=== PATIENT | male | born 1960 | race Two or more races ===

== ENCOUNTER 2017-07-21 11:22 | Emergency (ER) | payer MEDICAID, OTHER ==
[~2017-07-21] VITALS: Ht 170.2 cm; Wt 74.8 kg
[2017-07-21 11:27] VITALS: BP 122/77
== END 2017-07-21 15:29 | disposition left against medical advice (07) ==
LOC: ER 11:22
DX: T22.112A Burn of first degree of left forearm, initial encounter (principal); Z53.21 Procedure and treatment not carried out due to patient leaving prior to being seen by health care provider; X08.8XXA Exposure to other specified smoke, fire and flames, initial encounter; Y93.89 Activity, other specified; Y92.89 Other specified places as the place of occurrence of the external cause; Y99.8 Other external cause status

== ENCOUNTER → 2021-11-13 | Outpatient (CLI) | payer MEDICAID | END | disposition home or self-care (01) | LOC: Rad HDHVI 15:19 | PROVIDERS: ATTEND Internal Medicine Cardiovascular Disease | DX: I77.819 Aortic ectasia, unspecified site (principal); I10 Essential (primary) hypertension | CPT/HCPCS: 93306 ==

== ENCOUNTER → 2022-03-11 | Outpatient (CLI) | payer MEDICAID ==
[~2022-03-11] VITALS: Ht 170.2 cm; Wt 90.7 kg
[~2022-03-11] MED LIST: ADENOSINE 76 MG in GIVE UN-DILUTED 0 ML IV ONE; ADENOSINE 90 MG/30 ML INJ IV ONE
== END | disposition home or self-care (01) ==
LOC: Rad HDHVI 12:42
PROVIDERS: ATTEND Internal Medicine Cardiovascular Disease
DX: I10 Essential (primary) hypertension (principal); I25.10 Atherosclerotic heart disease of native coronary artery without angina pectoris; R06.02 Shortness of breath; R07.89 Other chest pain; I34.0 Nonrheumatic mitral (valve) insufficiency; E78.00 Pure hypercholesterolemia, unspecified; Z82.49 Family history of ischemic heart disease and other diseases of the circulatory system
CPT/HCPCS: 78452; 93005; 96374; 96375; A9500; J0153

== ENCOUNTER → 2022-08-04 | Outpatient (CLI) | payer MEDICAID ==
[~2022-08-04] VITALS: Ht 170.2 cm; Wt 94.8 kg
[~2022-08-04] MED LIST changes: -ADENOSINE 76 MG in GIVE UN-DILUTED 0 ML IV ONE; +ADENOSINE 80 MG in GIVE UN-DILUTED 0 ML IV ONE
== END | disposition home or self-care (01) ==
LOC: Rad HDHVI 08:03
PROVIDERS: ATTEND Internal Medicine Cardiovascular Disease
DX: I25.10 Atherosclerotic heart disease of native coronary artery without angina pectoris (principal); R07.9 Chest pain, unspecified; I48.0 Paroxysmal atrial fibrillation; I10 Essential (primary) hypertension; E78.00 Pure hypercholesterolemia, unspecified; Z82.49 Family history of ischemic heart disease and other diseases of the circulatory system
CPT/HCPCS: 78452; 93005; 96374; 96375; A9500; J0153

== ENCOUNTER → 2024-03-23 | Outpatient (CLI) | payer BC | END | disposition home or self-care (01) | LOC: Rad HDHVI 08:10 | PROVIDERS: ATTEND Internal Medicine Cardiovascular Disease | DX: I10 Essential (primary) hypertension (principal); E11.65 Type 2 diabetes mellitus with hyperglycemia | CPT/HCPCS: 93306 ==

== ENCOUNTER → 2024-05-09 | Outpatient (CLI) | payer BC, MEDICAID ==
[~2024-05-09] MED LIST changes: -ADENOSINE 80 MG in GIVE UN-DILUTED 0 ML IV ONE; -ADENOSINE 90 MG/30 ML INJ IV ONE; +ASPI1TAB20 PO; +ATOR40TA52 PO; +CLOP75TA28 PO; +ESOM40CA39 PO; +LEVO100T8 PO; +SACU1TAB PO
[2024-05-09 14:01] VITALS: BP 165/83; PULSE 68; RESP 20; O2SAT 94
[2024-05-09 14:10] VITALS: BP 167/83; PULSE 64; RESP 20; O2SAT 94
== END | disposition home or self-care (01) ==
LOC: Rad HDHVI 13:43
PROVIDERS: ATTEND Internal Medicine Cardiovascular Disease
DX: Z01.818 Encounter for other preprocedural examination (principal); R06.02 Shortness of breath; R09.89 Other specified symptoms and signs involving the circulatory and respiratory systems
CPT/HCPCS: 71046; 93005; G0463

== ENCOUNTER 2024-05-11 07:30 | Day surgery (SDC) | payer BC, MEDICAID ==
[2024-05-09 16:13] LABS: Basophils # (auto) 0.1 10 ^3/uL (0-0.2); Basophils % (auto) 0.5 % (0.0-2.0); Eosinophils # (auto) 0.8 10 ^3/uL (0-0.8); Eosinophils % (auto) 8.6 % (0.0-7.0); Hemoglobin 17.8 g/dL (13.5-17.5); Lymphocytes # (auto) 3.3 10 ^3/uL (0.4-5.4); Mean Corpuscular Hemoglobin 31.7 pg (28.0-32.0); Mean Corpuscular Hgb Conc. 34.8 g/dL (32.0-36.0); Monocytes # (auto) 0.9 10 ^3/uL (0-1.3); Monocytes % (auto) 8.8 % (0.0-12.0); Neutrophils # (auto) 4.7 10 ^3/uL (1.6-8.6); Neutrophils % (auto) 48.1 % (37.0-80.0); Nucleated Red Blood Cells % 0.8 %; Platelet Count (auto) 146 10^3/uL (140-450); Red Blood Cells 5.61 10^6/uL (4.5-5.90); Red Cell Distribution Width 13.9 % (11.8-14.3); White Blood Cell 9.7 10^3/uL (4.4-10.8)
[2024-05-09 16:21] LABS: Anion Gap 8 (5-15); Carbon Dioxide 25 mmol/L (20-31); Chloride 106 mmol/L (98-107); Potassium 3.8 mmol/L (3.5-5.1); Sodium 139 mmol/L (136-145)
[2024-05-09 16:22] LABS: Calcium 10.2 mg/dL (8.7-10.4)
[2024-05-09 16:27] LABS: BUN/Creatinine Ratio 12.5 (10.0-20.0); Blood Urea Nitrogen 13 mg/dL (9-23); Glucose 99 mg/dL (74-106)
[2024-05-09 16:30] LABS: INR 1.04 (0.9-1.15); Partial Thromboplastin Time 25.5 SEC (24.5-34.5)
[2024-05-11] VITALS (8 sets, daily range): BP systolic 120–143; BP diastolic 64–86; PULSE 58–64; RESP 12–24; O2SAT 91–96
[~2024-05-11] VITALS: Ht 170.2 cm; Wt 102.1 kg
[2024-05-11] MEDS ORDERED: fentaNYL CITRATE 100 MCG/2 ML VL ONE (12:18)
[2024-05-11] MEDS ORDERED: ANGIOMAX 250 MG VIAL IV ONE ×2 (12:18→13:51)
[2024-05-11] MEDS ORDERED: VERAPAMIL 2.5MG/ML INJ 2ML VIAL IV ONE (12:18)
[2024-05-11] MEDS ORDERED: HEPARIN SODIUM (PORCINE) 5000 UNITS/ML 1ML VIAL ONE (12:18)
[2024-05-11] MEDS ORDERED: LIDOCAINE 2%HCL (LOCAL ANESTH.) INJ 20ML MDV ONE (12:19)
[2024-05-11] MEDS ORDERED: MIDAZOLAM HCL 2MG/2ML 2ml VIAL (1mg/ml) ONE (12:19)
[2024-05-11] MEDS ORDERED: SODIUM CHL 0.9% 50 ML ONE ×2 (12:19→13:51)
[2024-05-11] MEDS ORDERED: ATROPINE SULF 1 MG/10ml SYR ONE (13:19)
[2024-05-11] MEDS ORDERED: CLOPIDOGREL BISULFATE 75 MG TAB ONE (13:45)
[2024-05-11] MEDS: ASPirin 81 mg TAB PO SCH (14:58)
[2024-05-11] MEDS: CLOPIDOGREL BISULFATE 75 MG TAB PO SCH (14:58)
--- NOTE | 2024-06-02 16:35 | DVHOP ---
DATE OF SURGERY: 05/11/2024 PROCEDURES PERFORMED: * Selective left and right coronary angiography. * Ventriculogram. * Thrombectomy of the posterior descending artery of the right coronary artery as well as angioplasty with stent placement with a 2.5 x 26 mm [place] stent. DESCRIPTION OF PROCEDURE: The patient was prepped and draped in a sterile condition. 1% Xylocaine used to anesthetize the right groin. Using a Cook needle, the right femoral artery was engaged with Seldinger technique, a 6-Serbian sheath in the right femoral artery. Using 6-Serbian JL4 catheter and 6-Serbian JR4 catheter, selective left and right coronary angiographies were performed. Using 6-Serbian pigtail catheter, ventriculogram was done. Then, following the diagnostic angiography, using a 6-Serbian JR4 diagnostic catheter, right coronary artery was cannulated. A Runthrough wire was used to cross the PDA lesion. It was in the mid to proximal lesion. Thrombectomy was done and shockwave was done, using a 2.5 x 12 mm shockwave balloon and thrombectomy catheter. Following the treatment, the patient underwent angioplasty with stent placement with a 2.5 x 26 mm ____ Damien stent deployed at 18 atmospheres. There were no complications. The patient tolerated the procedure well. RESULTS: * Left main without any flow restrictive lesion. * Left anterior descending artery, mild intimal irregularity without any flow restrictive lesion. * Circumflex, mild irregularity without any flow restrictive lesion. * Right coronary artery had mild intimal irregularity without any flow restrictive lesion. * Posterior lateral branch without any flow restrictive lesion. However, posterior descending artery had 80-90% narrowing with an FFR of 0.82. The patient underwent thrombectomy, shockwave treatment and stent placement with a 2.5 x 26 mm [place] stent with less than 10% residual stenosis. Left ventricular ejection fraction was around 50% with an LVEDP of 16 mmHg with no gradient across the aortic valve. Corby Owens MD SA/GEORGE/[facility] TID: [id number] RECEIPT: [id number]
== END 2024-05-11 16:15 | disposition home or self-care (01) ==
LOC: CATH 07:30
PROVIDERS: ATTEND Internal Medicine Cardiovascular Disease
DX: R94.39 Abnormal result of other cardiovascular function study (principal); R94.31 Abnormal electrocardiogram [ECG] [EKG]; R07.89 Other chest pain; I25.10 Atherosclerotic heart disease of native coronary artery without angina pectoris
CPT/HCPCS: 36415; 75580; 80048; 85025; 85610; 85730; 92973; 92978; 93458; C1725; C1753; C1760; C1769; C1874; C1887; C1894; C9600; J0583; J2250; J3010; J7030; 99152

== ENCOUNTER 2024-11-10 08:59 | Inpatient (IN) | payer BC, MEDICAID ==
[~2024-11-10] VITALS: Ht 170.2 cm; Wt 90.1 kg
--- NOTE | 2024-11-10 09:07 | ECG ---
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
--- NOTE | 2024-11-10 09:19 | ED.PDOC ---
History of Present Illness HPI Comments 64M presents to the Er w/ prior MHx of HTN, High Lipids, Thyroid; SHx of PTCA x5 due from blockage w/ Dr. Tavarez 4 months ago, and c/c of CP. Pt reports on having left shoulder and arm numbness for the past 2 days, and this morning having a sharp left sided CP, but took a low does of aspirin during the CP. Denies chills, fever, N/V/D, SOB. No other associated symptoms, modifiers, recent injuries or sick contacts present at this time. Chief Complaint: Chest Pain Time Seen by MD: 09:10 Primary Care Provider: ARACELI Reviewed Notes: Nurses Notes, Medications, Allergies Allergies: Coded Allergies: NO KNOWN ALLERGIES (Unverified , 05/09/24) Home Meds Reported Medications Sacubitril-Valsartan (Entresto 24-26 mg) 1 Tab Tab, 1 TAB PO BID for htn, TAB 05/09/24 Esomeprazole Magnesium Trihydr (Nexium) 40 Mg Cap, 1 CAP PO DAILY for gerd, #30 CAP 5 Refills 05/09/24 Clopidogrel Bisulfate (Plavix) 75 Mg Tab, 1 TAB PO DAILY for s/p cardiac stents, #90 TAB 1 Refill 05/09/24 Levothyroxine Sodium (Levothyroxine Sodium) 100 Mcg Tab, 100 MCG PO QAM for low thyroid for 30 Days, MCG 05/09/24 Aspirin (Aspir-81) 81 Mg Tab, 1 TAB PO DAILY for s/p cardiac stents, #30 TAB 5 Refills 05/09/24 Atorvastatin Calcium (ATORVASTATIN CALCIUM) 40 Mg Tab, 1 TAB PO DAILY for high cholesterol, #30 TAB 5 Refills 05/09/24 Information Source: Patient Mode of Arrival: Ambulatory Severity: Moderate Timing: Minutes Duration: Since onset, Minutes Prehospital treatment: None Past Medical History PAST MEDICAL HISTORY: High Lipids, HTN, Thyroid Surgical History: PTCA (x5 [address] Tavarez) Family History Family History: Reviewed,noncontributory to illness, Family hx of DM, Family hx of heart marga Family History (Other): Dementia Social History Smoker: Non-Smoker Alcohol: Denies ETOH Use Drugs: Denies Drug Use Constitutional: denies: chills, diaphoresis, fatigue, fever, malaise, sweats, weakness, others EENTM: denies: blurred vision, double vision, ear bleeding, ear discharge, ear drainage, ear pain, ear ringing, eye pain, eye redness, hearing loss, mouth pain, mouth swelling, nasal discharge, nose bleeding, nose congestion, nose pa in, photophobia, tearing, throat pain, throat swelling, voice changes, others Respiratory: denies: cough, hemoptysis, orthopnea, SOB at rest, shortness of breath, SOB with excertion, stridor, wheezing, others Cardiovascular: reports: chest pain, left arm pain (numbness); denies: dizzy spells, diaphoresis, Dyspnea on exertion, edema, irregular heart beat, lightheadedness, palpitations, PND, syncope, others Gastrointestinal: denies: abdomen distended, abdominal pain, blood streaked bowels, constipated, diarrhea, dysphagia, difficulty swallowing, hematemesis, melena, nausea, poor appetite, poor fluid intake, rectal bleeding, rectal pain, vomiting, others Genitourinary: denies: burning, dysuria, flank pain, frequency, hematuria, incontinence, penile discharge, penile sore, pain, testicle pain, testicle swelling, urgency, others Neurological: denies: dizziness, fainting, headache, left sided numbness, left sided weakness, numbness, paresthesia, pre-existing deficit, right sided numbness, right sided weakness, seizure, speech problems, tingling, tremors, weakness, others Musculoskeletal: denies: back pain, gout, joint pain, joint swelling, muscle pain, muscle stiffness, neck pain, others Integumetry: denies: bruises, change in color, change in hair/nails, dryness, laceration, lesions, lumps, rash, wounds, others Allergic/Immunocompromised: denies: Difficulty Healing, Frequent Infections, Hives, Itching, others Hematologic/Lymphatic: denies: anemia, blood clots, easy bleeding, easy bruising, swollen glands, others Endocrine: denies: excessive hunger, excessive sweating, excessive thirst, excessive urination, flushing, intolerance to cold, intolerance to heat, unexplained weight gain, unexplained weight loss, others Psychiatric: denies: anxiety, bipolar disorder, depression, hopeless, panic disorder, schizophrenia, sleepless, suicidal, others All Other Systems: Reviewed and Negative Physical Exam General Appearance: Moderate Distress, Obese HEENT: Normal ENT Inspection, Pharynx Normal, TMs Normal Neck: Full Range of Motion, Non-Tender, Normal, Normal Inspection Respiratory: Chest Non-Tender, Lungs Clear, No Accessory Muscle Use, No Respiratory Distress, Normal Breath Sounds Cardiovascular: No Edema, No JVD, No Murmur, No Gallop, Normal Peripheral Pulses, Regular Rate/Rhythm Breast Exam: Deferred Gastrointestinal: No Organomegaly, Non Tender, No Pulsatile Mass, Normal Bowel Sounds, Soft Genitalia: Deferred Pelvic: Deferred Rectal: Deferred Extremities: No calf tenderness, Normal capillary refill, Normal inspection, Normal range of motion, Non-tender, No pedal edema Musculoskeletal : Apperance: Normal Neurologic: Alert, counter former II-XII nml as Tested, No Motor Deficits, Normal Affect, Normal Mood, No Sensory Deficits Cerebellar Function: Normal Reflexes: Normal Skin: Dry, Normal Color, Warm Lymphatic: No Adenopathy Was a procedure done? Was a procedure done?: No EKG EKG : Pulse Rate (adult): 75 [place]: Normal Cardiac Rhythm: NSR Block: None ST: Nonsp Differential Dx Considerations may include: ACS, WI, generalized weakness, acute myocardial ischemia X-Ray, Labs, Meds, VS Vital Signs Date Time Temp Pulse Resp B/P (MAP) Pulse Ox O2 Delivery O2 Flow Rate FiO2 11/10/24 09:59 67 11/10/24 09:06 65 11/10/24 09:02 97.7 63 16 170/91 (117) 95 97.7 Lab Test 11/10/24 10:01 11/10/24 09:05 Range/Units Troponin I High Sensitivity Pending 84 *H </=54 ng/L White Blood Count 7.9 4.4-10.8 10^3/uL Red Blood Count 5.59 4.5-5.90 10^6/uL Hemoglobin 17.3 13.5-17.5 g/dL Hematocrit 50.2 41.0-53.0 % Mean Corpuscular Volume 89.8 80.0-100.0 fL Mean Corpuscular Hemoglobin 31.0 28.0-32.0 pg Mean Corpuscular Hemoglobin Concent 34.5 32.0-36.0 g/dL Red Cell Distribution Width 13.2 11.8-14.3 % Platelet Count 157 140-450 10^3/uL Mean Platelet Volume 9.9 6.9-10.8 fL Neutrophils (%) (Auto) 51.1 37.0-80.0 % Lymphocytes (%) (Auto) 33.2 10.0-50.0 % Monocytes (%) (Auto) 7.5 0.0-12.0 % Eosinophils (%) (Auto) 7.7 H 0.0-7.0 % Basophils (%) (Auto) 0.5 0.0-2.0 % Neutrophils # (Auto) 4.0 1.6-8.6 10 ^3/uL Lymphocytes # (Auto) 2.6 0.4-5.4 10 ^3/uL Monocytes # (Auto) 0.6 0-1.3 10 ^3/uL Eosinophils # (Auto) 0.6 0-0.8 10 ^3/uL Basophils # (Auto) 0 0-0.2 10 ^3/uL Nucleated Red Blood Cells 0.2 % Sodium Level 141 136-145 mmol/L Potassium Level 4.3 3.5-5.1 mmol/L Chloride Level 108 H 98-107 mmol/L Carbon Dioxide Level 22 20-31 mmol/L Anion Gap 11 5-15 Blood Urea Nitrogen 13 9-23 mg/dL Creatinine 0.89 0.700-1.30 mg/dL Glomerular Filtration Rate Calc 96 >90 mL/min BUN/Creatinine Ratio 14.6 10.0-20.0 Serum Glucose 104 74-106 mg/dL Calcium Level 10.3 8.7-10.4 mg/dL IV Hep-Lock was established. The CBC and chemistry panel are within normal limits The patient's troponin level is 84 The repeat troponin level is pending At this time the chest x-ray is negative The patient will be admitted at this time There is a concern for the elevated troponin level The patient was admitted The repeat troponin is now 72 from 84 A cardiology consult will be obtained. Images Reviewed?: Images reviewed and evaluated by me Time of 1ST Reevaluation: 09:40 Reevaluation 1ST: Unchanged Patient Education/Counseling: Diagnosis, Treatment, Prognosis Family Education/Counseling: No Family Present Departure 1 Departure Time of Disposition: 10:31 Impression: Primary Impression: Acute coronary syndrome with high troponin Additional Impression: Elevated troponin Disposition: 09 ADMITTED INPATIENT Admit to: [facility] Condition: Fair Critical Care Note Critical Care Time?: Yes (45 min-critical care time only) Stability Stability form required: Yes Unstable for transfer: Telemetry monitoring (Telemetry monitoring required), ED Physician Assesment (Clinical assesment) Heart Score Heart Score: Heart Score Response (Comments) Value History Moderate Suspicious [address]-Deviation 2 Age 45-64 1 Risk Factors >3 or Hx ASHD 2 Troponin 1-2 x's Normal limit 1 Total 7 I personally scribed for CINDY ROSARIO MD ([email or web address]) on 11/10/24 at 09:18. Electronically submitted by Gerry Valladares ([email or web address]). CINDY ROSARIO MD November 10, 2024 09:18
[2024-11-10 09:35] LABS: Basophils # (auto) 0 10 ^3/uL (0-0.2); Basophils % (auto) 0.5 % (0.0-2.0); Eosinophils # (auto) 0.6 10 ^3/uL (0-0.8); Eosinophils % (auto) 7.7 % (0.0-7.0); Hematocrit 50.2 % (41.0-53.0); Hemoglobin 17.3 g/dL (13.5-17.5); Lymphocytes # (auto) 2.6 10 ^3/uL (0.4-5.4); Lymphocytes % (auto) 33.2 % (10.0-50.0); Mean Corpuscular Hgb Conc. 34.5 g/dL (32.0-36.0); Mean Corpuscular Volume 89.8 fL (80.0-100.0); Monocytes # (auto) 0.6 10 ^3/uL (0-1.3); Monocytes % (auto) 7.5 % (0.0-12.0); Neutrophils % (auto) 51.1 % (37.0-80.0); Nucleated Red Blood Cells % 0.2 %; Platelet Count (auto) 157 10^3/uL (140-450); Red Blood Cells 5.59 10^6/uL (4.5-5.90); Red Cell Distribution Width 13.2 % (11.8-14.3); White Blood Cell 7.9 10^3/uL (4.4-10.8)
--- NOTE | 2024-11-10 09:44 | DVH ---
XY CHEST TWO VIEWS ROUTINE, HISTORY: CP COMPARISON: XY CHEST TWO VIEWS ROUTINE on DOS: 05/09/24, CXR2 on DOS: 07/28/22, CHEST TWO VIEWS ROUTIN E on DOS: 07/28/22 XY CHEST TWO VIEWS ROUTINE on DOS: 05/09/24, CXR2 on DOS: 07/28/22, CHEST TWO VIEWS ROUTINE on DOS: TECHNICAL DATA: 2 view of the chest was obtained. FINDINGS: Lines and tubes: None Cardiomediastinal silhouette: normal Pulmonary vasculature: normal Lung expansion: normal Lung airspace: normal Lung interstitium: normal Pleura: normal Pneumothorax: no Bones: Unremarkable Other: no IMPRESSION: No acute intrathoracic abnormality.
[2024-11-10 09:53] LABS: Potassium 4.3 mmol/L (3.5-5.1); Sodium 141 mmol/L (136-145)
[2024-11-10 09:54] LABS: Anion Gap 11 (5-15); Calcium 10.3 mg/dL (8.7-10.4); Carbon Dioxide 22 mmol/L (20-31)
[2024-11-10 09:56] LABS: Chloride 108 mmol/L (98-107)
[2024-11-10 09:59] LABS: BUN/Creatinine Ratio 14.6 (10.0-20.0); Blood Urea Nitrogen 13 mg/dL (9-23); Glucose 104 mg/dL (74-106)
--- NOTE | 2024-11-10 10:08 | ECG ---
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
[2024-11-10] MEDS: ASPirin 81 mg TAB PO ONE (10:45)
[2024-11-10 11:00] VITALS: PULSE 62; RESP 12; O2SAT 95
[2024-11-10 13:44] LABS: Urine Bacteria None Seen /hpf (None Seen)
[2024-11-10 13:58] LABS: Urine Blood Negative /uL (Negative); Urine Clarity Clear (Clear); Urine Color Light-Yellow (Yellow); Urine Protein, UAD Negative (Negative); Urine Specific Gravity 1.017 (1.001-1.035); Urine Squamous Epithelial Cell None Seen /hpf (<5); Urine Urobilinogen Normal (Negative); Urine WBC 1 /HPF (0-3); Urine pH 5.5 (5.0-9.0)
[2024-11-10] MEDS ORDERED: MORPHINE SULFATE 4 MG/ML SYR/VIAL IV PRN (16:45)
[2024-11-10] MEDS ORDERED: ONDANSETRON HCL 4 MG/2 ML VIAL IV PRN (16:45)
[2024-11-10] MEDS ORDERED: NITROGLYCERIN 0.4 MG SL TAB SL PRN ×2 (16:45)
[2024-11-10] MEDS ORDERED: ACETAMINOPHEN 325 MG TAB PO PRN (16:45)
[2024-11-10] MEDS ORDERED: MORPHINE SULFATE INJ 2 MG/ml SYRG IV PRN (16:45)
--- NOTE | 2024-11-10 17:01 | DVHHP2 ---
History of Present Illness Reason for Visit: Chest pain History of Present Illness Vic Desir is a 64-year-old male with past medical history of hypertension, hyperlipidemia, hypothyroidism, pneumonia, and PTCA x5 most recent one with Dr. Tavarez less than 4 months ago who presents to the ED with chest pain x2 days radiating to the left arm and face. Patient reports that he has tingling around his face on the left side, describes the chest pain 6/10 sharp and intermittent in nature. 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 Patient states that there are no triggering or alleviating factors. Patient states that he goes to [place] and back for work. Patient denies any recent trauma or injury, recent sick contacts, recent ingestion of spoiled food, shortness of breath, abdominal pain, nausea, vomiting, diarrhea, wheezing, fever, chills, lightheadedness, weakness, or dizziness. Cardiovascular: HTN, hyperipidemia Pulmonary: Pneumonia Endocrine: Hyperthyroidism Past Surgical History: Other (PTCA x5) Family History: Other (Mom with heart disease and dad with heart disease and dementia) Smoke: Quit ALCOHOL: none (Quit) Drugs: None (Quit) Lives: Alone Domestic Violence: Neg Review of Systems Cardiovascular: Chest Pain Musculoskeletal: arm pain Allergies: Coded Allergies: NO KNOWN ALLERGIES (Unverified , 05/09/24) Exam Vital Signs Vital Signs Date Time Temp Pulse Resp B/P (MAP) Pulse Ox O2 Delivery O2 Flow Rate FiO2 11/10/24 16:15 69 12 139/78 (98) 93 11/10/24 11:00 Room Air* 0 21 11/10/24 10:38 97.7 97.7 General Appearance: Alert, Oriented X3, Cooperative, No acute distress HEENT: Atraumatic, PERRLA, EOMI, Mucous membr. moist/pink Respiratory: Clear to auscultation, Normal air movement Cardiovascular: Normal S1, Normal S2, No murmurs Abdominal: Normal bowel sounds, Soft, No tenderness, No hepatospenomegaly, No masses Extremities: Normal pulses, No tenderness/swelling Skin: No significant lesion Neuro: Normal speech, Strength at 5/5 X4 ext, Normal tone, Sensation intact Psych/Mental Status: Mental status NL, Mood NL Labs/Xrays Labs Test 11/10/24 13:21 5/2/25 11:50 11/10/24 09:05 Range/Units Urine Color Light-yellow Yellow Urine Clarity Clear Clear Urine pH 5.5 5.0-9.0 Urine Specific [place] 1.017 1.001-1.035 Urine Protein Negative Negative Urine Ketones Negative Negative Urine Blood Negative Negative /uL Urine Nitrite Negative Negative Urine Bilirubin Negative Negative Urine Urobilinogen Normal Negative mg/dL Urine Leukocyte Esterase Negative Negative /uL Urine RBC <1 0 - 3 /hpf Urine Microscopic WBC 1 0-3 /HPF Urine Squamous Epithelial Cells None seen <5 /hpf Urine Bacteria None seen None Seen /hpf Urine Glucose Normal Normal mg/dL Troponin I High Sensitivity 69 *H </=54 ng/L White Blood Count 7.9 4.4-10.8 10^3/uL Red Blood Count 5.59 4.5-5.90 10^6/uL Hemoglobin 17.3 13.5-17.5 g/dL Hematocrit 50.2 41.0-53.0 % Mean Corpuscular Volume 89.8 80.0-100.0 fL Mean Corpuscular Hemoglobin 31.0 28.0-32.0 pg Mean Corpuscular Hemoglobin Concent 34.5 32.0-36.0 g/dL Red Cell Distribution Width 13.2 11.8-14.3 % Platelet Count 157 140-450 10^3/uL Mean Platelet Volume 9.9 6.9-10.8 fL Neutrophils (%) (Auto) 51.1 37.0-80.0 % Lymphocytes (%) (Auto) 33.2 10.0-50.0 % Monocytes (%) (Auto) 7.5 0.0-12.0 % Eosinophils (%) (Auto) 7.7 H 0.0-7.0 % Basophils (%) (Auto) 0.5 0.0-2.0 % Neutrophils # (Auto) 4.0 1.6-8.6 10 ^3/uL Lymphocytes # (Auto) 2.6 0.4-5.4 10 ^3/uL Monocytes # (Auto) 0.6 0-1.3 10 ^3/uL Eosinophils # (Auto) 0.6 0-0.8 10 ^3/uL Basophils # (Auto) 0 0-0.2 10 ^3/uL Nucleated Red Blood Cells 0.2 % Sodium Level 141 136-145 mmol/L Potassium Level 4.3 3.5-5.1 mmol/L Chloride Level 108 H 98-107 mmol/L Carbon Dioxide Level 22 20-31 mmol/L Anion Gap 11 5-15 Blood Urea Nitrogen 13 9-23 mg/dL Creatinine 0.89 0.700-1.30 mg/dL Glomerular Filtration Rate Calc 96 >90 mL/min BUN/Creatinine Ratio 14.6 10.0-20.0 Serum Glucose 104 74-106 mg/dL Calcium Level 10.3 8.7-10.4 mg/dL XY CHEST TWO VIEWS ROUTINE, HISTORY: CP COMPARISON: XY CHEST TWO VIEWS ROUTINE on DOS: 05/09/24, CXR2 on DOS: 07/28/22, CHEST TWO VIEWS ROUTINE on DOS: 07/28/22 XY CHEST TWO VIEWS ROUTINE on DOS: 05/09/24, CXR2 on DOS: 07/28/22, CHEST TWO VIEWS ROUTINE on DOS: 07/28/22 TECHNICAL DATA: 2 view of the chest was obtained. FINDINGS: Lines and tubes: None Cardiomediastinal silhouette: normal Pulmonary vasculature: normal Lung expansion: normal Lung airspace: normal Lung interstitium: normal Pleura: normal Pneumothorax: no Bones: Unremarkable Other: no IMPRESSION: No acute intrathoracic abnormality. Assessment/Plan Assessment/Plan Assessment NSTEMI Obesity Ex-smoker Ex drug use Ex alcohol use History of hypertension History of hyperlipidemia History of hypothyroidism History of pneumonia x4 History of PTCA x5 most recent one, [address] TAVAREZ Plan Admit to tele Antiemetics Pain management ACS workup Trend troponins UA noted Aspirin Statins Chest x-ray noted EKG Echo ordered TSH Hemoglobin A1c Lipid panel UDS Diet Home medications reconciled DVT prophylaxis-patient on Plavix continue home medication PUD prophylaxis-not indicated no history of GERD or GI bleed Discussed plan of care with patient and nurse Counseled patient on lifestyle modifications, diet, and exercise Cardiology consult Plan discussed with: Patient Date of Service: November 10, 2024 Billing Provider: MARIAH ELLIOTT Common Visit Codes: [id number] INP/OBS CARE (HIGH) MARIAH ELLIOTT November 10, 2024 17:01
[2024-11-10 17:13] LABS: Triglycerides 137 mg/dL (< 150)
[2024-11-10 17:14] LABS: LDL Cholesterol 72 mg/dL (< 100)
[2024-11-10 17:15] LABS: Cholesterol 126 mg/dL (< 200)
[2024-11-10 17:16] LABS: HDL Cholesterol 33 mg/dL (40-59)
[2024-11-10 19:25] VITALS: PULSE 68; RESP 20; O2SAT 90
[2024-11-10 20:00] VITALS: PULSE 65
[2024-11-10] MEDS: SACUBITRIL-VALSARTAN 24mg/26mg TAB PO SCH (21:22)
[2024-11-11] VITALS (8 sets, daily range): BP systolic 116–154; BP diastolic 62–99; PULSE 62–74; RESP 16–19; TEMP 97.4–97.9; O2SAT 93–97
[2024-11-11] MEDS: LEVOTHYROXINE SODIUM 100 MCG TAB PO SCH (06:18)
[2024-11-11 07:11] LABS: Basophils # (auto) 0.1 10 ^3/uL (0-0.2); Basophils % (auto) 0.6 % (0.0-2.0); Eosinophils # (auto) 0.5 10 ^3/uL (0-0.8); Eosinophils % (auto) 6.6 % (0.0-7.0); Hemoglobin 17.1 g/dL (13.5-17.5); Lymphocytes # (auto) 2.5 10 ^3/uL (0.4-5.4); Lymphocytes % (auto) 29.7 % (10.0-50.0); Mean Corpuscular Hemoglobin 30.7 pg (28.0-32.0); Mean Corpuscular Hgb Conc. 34.2 g/dL (32.0-36.0); Mean Corpuscular Volume 89.6 fL (80.0-100.0); Monocytes # (auto) 0.6 10 ^3/uL (0-1.3); Monocytes % (auto) 7.2 % (0.0-12.0); Neutrophils # (auto) 4.7 10 ^3/uL (1.6-8.6); Neutrophils % (auto) 55.9 % (37.0-80.0); Nucleated Red Blood Cells % 0.1 %; Platelet Count (auto) 150 10^3/uL (140-450); Red Blood Cells 5.58 10^6/uL (4.5-5.90); Red Cell Distribution Width 13.5 % (11.8-14.3); White Blood Cell 8.3 10^3/uL (4.4-10.8)
[2024-11-11 07:25] LABS: Anion Gap 10 (5-15); Carbon Dioxide 22 mmol/L (20-31); Chloride 107 mmol/L (98-107); Potassium 4.2 mmol/L (3.5-5.1); Sodium 139 mmol/L (136-145)
[2024-11-11 07:26] LABS: Calcium 9.9 mg/dL (8.7-10.4)
[2024-11-11 07:30] LABS: Glucose 105 mg/dL (74-106)
[2024-11-11 07:31] LABS: BUN/Creatinine Ratio 15.7 (10.0-20.0); Blood Urea Nitrogen 14 mg/dL (9-23); Magnesium 2.1 mg/dL (1.6-2.6)
[2024-11-11] MEDS: PANTOPRAZOLE 40 MG TAB PO SCH (10:07)
[2024-11-11] MEDS: CLOPIDOGREL BISULFATE 75 MG TAB PO SCH (10:07)
[2024-11-11] MEDS: ATORVASTATIN 20 MG TAB PO SCH (10:07)
[2024-11-11] MEDS: ASPirin-EC 81 mg tab PO SCH (10:08)
--- NOTE | 2024-11-11 11:02 | DVHPN2 ---
Reviewed: Care Plan, H&P, Labs, Medications, Previous Orders Changes from previous H/P or p: No Changes General: Per HPI Cardiovascular: Chest Pain Musculoskeletal: arm pain Objective Vitals Vital Signs Date Time Temp Pulse Resp B/P (MAP) Pulse Ox O2 Delivery O2 Flow Rate FiO2 11/11/24 09:00 97.4 65 18 130/78 (95) 95 97.4 11/10/24 21:07 Room Air* 0 21 Intake/Output Intake and Output 11/11/24 07:00 Intake Total 225 ml Balance 225 ml Intake Oral 225 ml # Voids 2 General Appearance: Alert Cardiovascular: Regular rate, Normal S1, Normal S2 Abdomen: Normal bowel sounds Medications Current Medications Medications Dose Ordered Sig/Tamia Route Start Time Stop Time Status Last Admin Dose Admin Acetaminophen 650 mg Q6HP PRN PO 11/10/24 16:45 Ondansetron HCl 4 mg Q4HP PRN IV 11/10/24 16:45 Nitroglycerin 0.4 mg Q5MINP PRN SL 11/10/24 16:45 Morphine Sulfate 2 mg Q30M PRN IV 11/10/24 16:45 Aspirin 81 mg DAILY PO 11/11/24 10:00 11/11/24 10:08 81 MG Clopidogrel Bisulfate 75 mg DAILY PO 11/11/24 10:00 11/11/24 10:07 75 MG Levothyroxine Sodium 100 mcg QAM PO 11/11/24 07:00 11/11/24 06:18 100 MCG Sacubitril/ Valsartan 1 tab BID PO 11/10/24 22:00 11/11/24 10:07 1 TAB Atorvastatin Calcium 40 mg DAILY PO 11/11/24 10:00 11/11/24 10:07 40 MG Pantoprazole Sodium 40 mg DAILY PO 11/11/24 10:00 11/11/24 10:07 40 MG Laboratory Results Laboratory Tests 11/11/24 05:06 Chemistry Test 11/11/24 05:06 Calcium Level 9.9 mg/dL (8.7-10.4) Magnesium Level 2.1 mg/dL (1.6-2.6) HgA1c, TSH Test 11/10/24 11:50 Thyroid Stimulating Hormone (TSH) 1.85 uIU/mL (0.55-4.78) Urinalysis Test 5/2/25 13:21 Urine Color Light-yellow (Yellow) Urine Clarity Clear (Clear) Urine pH 5.5 (5.0-9.0) Urine Specific [place] 1.017 (1.001-1.035) Urine Protein Negative (Negative) Urine Ketones Negative (Negative) Urine Blood Negative /uL (Negative) Urine Nitrite Negative (Negative) Urine Bilirubin Negative (Negative) Urine Urobilinogen Normal mg/dL (Negative) Urine Leukocyte Esterase Negative /uL (Negative) Urine RBC <1 /hpf (0 - 3) Urine Microscopic WBC 1 /HPF (0-3) Urine Squamous Epithelial Cells None seen /hpf (<5) Urine Bacteria None seen /hpf (None Seen) Urine Glucose Normal mg/dL (Normal) Labs and/or images reviewed: Labs reviewed by me, Image(s) reviewed by me Assessment/Plan Assessment/Plan Vic Desir is a 64-year-old male with past medical history of hypertension, hyperlipidemia, hypothyroidism, pneumonia, and PTCA x5 most recent one with Dr. Tavarez less than 4 months ago who presents to the ED with chest pain x2 days radiating to the left arm and face. Patient reports that he has tingling around his face on the left side, describes the chest pain 6/10 sharp and intermittent in nature. 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 Patient states that there are no triggering or alleviating factors. Patient states that he goes to [place] and back for work. Patient denies any recent trauma or injury, recent sick contacts, recent ingestion of spoiled food, shortness of breath, abdominal pain, nausea, vomiting, diarrhea, wheezing, fever, chills, lightheadedness, weakness, or dizziness. NSTEMI Obesity Ex-smoker Ex drug use Ex alcohol use History of hypertension History of hyperlipidemia History of hypothyroidism History of pneumonia x4 History of PTCA x5 most recent one, [address] SHAR pa evaluation by dr Tavarez Plan discussed with: Patient Date of Service: November 11, 2024 Billing Provider: FABIAN ALVAREZ DO Common Visit Codes: [id number] INP/OBS CARE(HIGH) FABIAN ALVAREZ DO November 11, 2024 11:02
[2024-11-12] VITALS (8 sets, daily range): BP systolic 122–134; BP diastolic 69–81; PULSE 60–67; RESP 18–19; TEMP 97.3–97.6; O2SAT 92–97
[2024-11-13] VITALS (8 sets, daily range): BP systolic 134–146; BP diastolic 69–88; PULSE 60–69; RESP 17–19; TEMP 97.2–97.5; O2SAT 93–96
--- NOTE | 2024-11-13 10:41 | DVHPN2 ---
Progress Note - Dictate Date Seen: November 13, 2024 Medical Necessity Reason Pt with a Central, PICC or Fol: No Subjective PT WITH CHEST PAIN HX OF CAD S/P PTCA STENT X 5 HTN HYPERLIPIDEMIA TROPONIN NEGATIVE ECG NO ACUTE CHANGES ECHO LVH EF 50% NO CHANGES FROM PREVIOUS ECHO [facility] 05/04 * Left main without any flow restrictive lesion. * Left anterior descending artery, mild intimal irregularity without any flow restrictive lesion. * Circumflex, mild irregularity without any flow restrictive lesion. * Right coronary artery had mild intimal irregularity without any flow restrictive lesion. * Posterior lateral branch without any flow restrictive lesion. However, posterior descending artery had 80-90% narrowing with an FFR of 0.82. The patient underwent thrombectomy, shockwave treatment and stent placement with a 2.5 x 26 mm Damien [place] stent with less than 10% residual stenosis. Left ventricular ejection fraction was around 50% with an LVEDP of 16 mmHg with no gradient across the aortic valve. vital signs Vital Sign Date Time Temp Pulse Resp B/P (MAP) Pulse Ox O2 Delivery O2 Flow Rate FiO2 11/13/24 05:00 97.3 68 18 139/73 (95) 96 97.3 11/12/24 20:00 Room Air* 0 21 Total Intake and Output 11/12/24 11/12/24 11/13/24 15:00 23:00 07:00 Intake Total 200 ml 800 ml 200 ml Balance 200 ml 800 ml 200 ml medications Current Medications Medications Dose Ordered Sig/Tamia Route Start Time Stop Time Status Last Admin Dose Admin Acetaminophen 650 mg Q6HP PRN PO 11/10/24 16:45 Ondansetron HCl 4 mg Q4HP PRN IV 11/10/24 16:45 Nitroglycerin 0.4 mg Q5MINP PRN SL 11/10/24 16:45 Morphine Sulfate 2 mg Q30M PRN IV 11/10/24 16:45 Aspirin 81 mg DAILY PO 11/11/24 10:00 11/12/24 09:19 81 MG Clopidogrel Bisulfate 75 mg DAILY PO 11/11/24 10:00 11/12/24 09:19 75 MG Levothyroxine Sodium 100 mcg QAM PO 11/11/24 07:00 11/13/24 06:15 100 MCG Sacubitril/ Valsartan 1 tab BID PO 11/10/24 22:00 11/12/24 21:15 1 TAB Atorvastatin Calcium 40 mg DAILY PO 11/11/24 10:00 11/12/24 09:19 40 MG Pantoprazole Sodium 40 mg DAILY PO 11/11/24 10:00 11/12/24 09:19 40 MG laboratory and microbiology Laboratory Tests 11/11/24 05:06 Test 11/11/24 05:06 Range/Units Serum Glucose 105 74-106 mg/dL Problem List CHEST PAIN HX OF CAD S/P PTCA STENT X 5 HTN HYPERLIPIDEMIA TROPONIN NEGATIVE ECG NO ACUTE CHANGES ECHO LVH EF 50% NO CHANGES FROM PREVIOUS ECHO [facility] 05/04 * Left main without any flow restrictive lesion. * Left anterior descending artery, mild intimal irregularity without any flow restrictive lesion. * Circumflex, mild irregularity without any flow restrictive lesion. * Right coronary artery had mild intimal irregularity without any flow restrictive lesion. * Posterior lateral branch without any flow restrictive lesion. However, posterior descending artery had 80-90% narrowing with an FFR of 0.82. The patient underwent thrombectomy, shockwave treatment and stent placement with a 2.5 x 26 mm [place] stent with less than 10% residual stenosis. Left ventricular ejection fraction was around 50% with an LVEDP of 16 mmHg with no gradient across the aortic valve. Assessment/Plan CONSIDER CARDIOLITE STRESS IN AM Plan discussed with: Patient Critical Care Time(min): 35 SHAR GARCÍA MD November 13, 2024 10:41
--- NOTE | 2024-11-13 10:56 | ECG ---
[facility] Test Date: 2024-11-10 Test Time: 12:01:27 Pat Name: MYNOR BAILEY Department: ED Room: 0215T B Gender: M Administrative Project Coordinator: LINN : 1960 Requested By: CINDY ROSARIO Order Number: [id number] Reading MD: Hima Capone Measurements Intervals [place] Rate: 58 P: 54 PA: 164 QRS: 16 QRSD: 102 T: -6 QT: 398 QTc: 391 Interpretive Statements Sinus rhythm Abnormal R-wave progression, early transition Borderline T wave abnormalities Electronically Signed On 11-16-2024 20:20:14 PDT by Hima Capone Please click the below link to view image of tracing.
--- NOTE | 2024-11-13 11:59 | DVHPN2 ---
Subjective Patient was denies any symptoms at this time. Reviewed: Care Plan, H&P, Labs, Medications, Previous Orders Changes from previous H/P or p: No Changes General: Per HPI Cardiovascular: Chest Pain Musculoskeletal: arm pain Objective Vitals Vital Signs Date Time Temp Pulse Resp B/P (MAP) Pulse Ox O2 Delivery O2 Flow Rate FiO2 11/13/24 09:00 97.2 62 17 139/84 (102) 94 97.2 11/13/24 08:05 Room Air* 0 21 Intake/Output Intake and Output 11/13/24 07:00 Intake Total 1200 ml Balance 1200 ml Intake Oral 1200 ml # Voids 6 # Bowel Movements 1 General Appearance: Alert, Oriented X3, Cooperative, No acute distress HEENT: Atraumatic, PERRLA Cardiovascular: Normal S1, Normal S2 Musculoskeletal: Normal sensory function, Normal motor function Skin: Dry, Intact Psych/Mental Status: Mental status NL, Mood NL Medications Current Medications Medications Dose Ordered Sig/Tamia Route Start Time Stop Time Status Last Admin Dose Admin Acetaminophen 650 mg Q6HP PRN PO 11/10/24 16:45 Ondansetron HCl 4 mg Q4HP PRN IV 11/10/24 16:45 Nitroglycerin 0.4 mg Q5MINP PRN SL 11/10/24 16:45 Morphine Sulfate 2 mg Q30M PRN IV 11/10/24 16:45 Aspirin 81 mg DAILY PO 11/11/24 10:00 11/13/24 10:40 81 MG Clopidogrel Bisulfate 75 mg DAILY PO 11/11/24 10:00 11/13/24 10:41 75 MG Levothyroxine Sodium 100 mcg QAM PO 11/11/24 07:00 11/13/24 06:15 100 MCG Sacubitril/ Valsartan 1 tab BID PO 11/10/24 22:00 11/13/24 10:40 1 TAB Atorvastatin Calcium 40 mg DAILY PO 11/11/24 10:00 11/13/24 10:40 40 MG Pantoprazole Sodium 40 mg DAILY PO 11/11/24 10:00 11/13/24 10:40 40 MG Laboratory Results Laboratory Tests 11/11/24 05:06 Urinalysis Test 11/10/24 13:21 Urine Color Light-yellow (Yellow) Urine Clarity Clear (Clear) Urine pH 5.5 (5.0-9.0) Urine Specific [place] 1.017 (1.001-1.035) Urine Protein Negative (Negative) Urine Ketones Negative (Negative) Urine Blood Negative /uL (Negative) Urine Nitrite Negative (Negative) Urine Bilirubin Negative (Negative) Urine Urobilinogen Normal mg/dL (Negative) Urine Leukocyte Esterase Negative /uL (Negative) Urine RBC <1 /hpf (0 - 3) Urine Microscopic WBC 1 /HPF (0-3) Urine Squamous Epithelial Cells None seen /hpf (<5) Urine Bacteria None seen /hpf (None Seen) Urine Glucose Normal mg/dL (Normal) Labs and/or images reviewed: Labs reviewed by me, Image(s) reviewed by me Assessment/Plan Assessment/Plan Impression: -rule out ACS -history of CAD with stent placement x4 -dyslipidemia -primary hypertension -obesity Plan: -cardiology consultation: Plans for Cardiolite stress test -continue dual antiplatelet therapy -continue antihypertensives -echocardiogram: Pending -further course of care per sr. strategic sourcing manager recommendations Total time spent with patient discussing and formulating plan of care: 35 minutes. This medical document was created using an electronic medical record system with [employer] dictation system. Although this document has been carefully reviewed, there may still be some phonetic and typographical errors. These areas are purely typographical due to imperfections of the software programs, and do not reflect any compromise in the patient's medical care. Plan discussed with: Patient, Other (RN) Date of Service: November 13, 2024 Billing Provider: GEORGINA DOMINGUEZ NP Common Visit Codes: [id number] INP/OBS CARE(HIGH) GEORGINA DOMINGUEZ NP November 13, 2024 11:58
--- NOTE | 2024-11-13 16:55 | DVHPN2 ---
Reviewed: Care Plan, H&P, Labs, Medications, Previous Orders Changes from previous H/P or p: No Changes General: Per HPI Cardiovascular: Chest Pain Musculoskeletal: arm pain Objective Vitals Vital Signs Date Time Temp Pulse Resp B/P (MAP) Pulse Ox O2 Delivery O2 Flow Rate FiO2 11/13/24 13:00 97.5 64 17 146/74 (98) 93 97.5 11/13/24 08:05 Room Air* 0 21 Intake/Output Intake and Output 11/13/24 06:59 Intake Total 1200 ml Balance 1200 ml Intake Oral 1200 ml # Voids 6 # Bowel Movements 1 General Appearance: Alert HEENT: Atraumatic, PERRLA Cardiovascular: Regular rate, Normal S1, Normal S2 Abdomen: Normal bowel sounds Musculoskeletal: Normal sensory function, Normal motor function Skin: Dry, Intact Psych/Mental Status: Mental status NL, Mood NL Medications Current Medications Medications Dose Ordered Sig/Tamia Route Start Time Stop Time Status Last Admin Dose Admin Acetaminophen 650 mg Q6HP PRN PO 11/10/24 16:45 Ondansetron HCl 4 mg Q4HP PRN IV 11/10/24 16:45 Nitroglycerin 0.4 mg Q5MINP PRN SL 11/10/24 16:45 Morphine Sulfate 2 mg Q30M PRN IV 11/10/24 16:45 Aspirin 81 mg DAILY PO 11/11/24 10:00 11/13/24 10:40 81 MG Clopidogrel Bisulfate 75 mg DAILY PO 11/11/24 10:00 11/13/24 10:41 75 MG Levothyroxine Sodium 100 mcg QAM PO 11/11/24 07:00 11/13/24 06:15 100 MCG Sacubitril/ Valsartan 1 tab BID PO 11/10/24 22:00 11/13/24 10:40 1 TAB Atorvastatin Calcium 40 mg DAILY PO 11/11/24 10:00 11/13/24 10:40 40 MG Pantoprazole Sodium 40 mg DAILY PO 11/11/24 10:00 11/13/24 10:40 40 MG Laboratory Results Laboratory Tests 11/11/24 05:06 Urinalysis Test 11/10/24 13:21 Urine Color Light-yellow (Yellow) Urine Clarity Clear (Clear) Urine pH 5.5 (5.0-9.0) Urine Specific [place] 1.017 (1.001-1.035) Urine Protein Negative (Negative) Urine Ketones Negative (Negative) Urine Blood Negative /uL (Negative) Urine Nitrite Negative (Negative) Urine Bilirubin Negative (Negative) Urine Urobilinogen Normal mg/dL (Negative) Urine Leukocyte Esterase Negative /uL (Negative) Urine RBC <1 /hpf (0 - 3) Urine Microscopic WBC 1 /HPF (0-3) Urine Squamous Epithelial Cells None seen /hpf (<5) Urine Bacteria None seen /hpf (None Seen) Urine Glucose Normal mg/dL (Normal) Assessment/Plan Assessment/Plan Vic Desir is a 64-year-old male with past medical history of hypertension, hyperlipidemia, hypothyroidism, pneumonia, and PTCA x5 most recent one with Dr. Tavarez less than 4 months ago who presents to the ED with chest pain x2 days radiating to the left arm and face. Patient reports that he has tingling around his face on the left side, describes the chest pain 6/10 sharp and intermittent in nature. 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 Patient states that there are no triggering or alleviating factors. Patient states that he goes to [place] and back for work. Patient denies any recent trauma or injury, recent sick contacts, recent ingestion of spoiled food, shortness of breath, abdominal pain, nausea, vomiting, diarrhea, wheezing, fever, chills, lightheadedness, weakness, or dizziness. NSTEMI Obesity Ex-smoker Ex drug use Ex alcohol use History of hypertension History of hyperlipidemia History of hypothyroidism History of pneumonia x4 History of PTCA x5 most recent one, [address] SHAR pa evaluation by dr Tavarez Plan discussed with: Patient Date of Service: November 12, 2024 Billing Provider: FABIAN ALVAREZ DO Common Visit Codes: [id number] INP/OBS CARE(HIGH) FABIAN ALVAREZ DO November 13, 2024 16:55
[2024-11-14 01:00] VITALS: BP 140/77; PULSE 62; RESP 18; TEMP 97.7; O2SAT 97
[2024-11-14 05:00] VITALS: BP 138/76; PULSE 60; RESP 17; TEMP 97.5; O2SAT 95
--- NOTE | 2024-11-14 07:30 | DVHPN2 ---
Progress Note - Dictate Date Seen: November 14, 2024 Medical Necessity Reason Pt with a Central, PICC or Fol: No Subjective PT WITH CHEST PAIN HX OF CAD S/P PTCA STENT X 5 HTN HYPERLIPIDEMIA TROPONIN NEGATIVE ECG NO ACUTE CHANGES ECHO LVH EF 50% NO CHANGES FROM PREVIOUS ECHO [facility] 05/04 * Left main without any flow restrictive lesion. * Left anterior descending artery, mild intimal irregularity without any flow restrictive lesion. * Circumflex, mild irregularity without any flow restrictive lesion. * Right coronary artery had mild intimal irregularity without any flow restrictive lesion. * Posterior lateral branch without any flow restrictive lesion. However, posterior descending artery had 80-90% narrowing with an FFR of 0.82. The patient underwent thrombectomy, shockwave treatment and stent placement with a 2.5 x 26 mm Damien [place] stent with less than 10% residual stenosis. Left ventricular ejection fraction was around 50% with an LVEDP of 16 mmHg with no gradient across the aortic valve. vital signs Vital Sign Date Time Temp Pulse Resp B/P (MAP) Pulse Ox O2 Delivery O2 Flow Rate FiO2 11/14/24 05:00 97.5 60 17 138/76 (96) 95 97.5 11/13/24 20:00 Room Air* 0 21 Total Intake and Output 11/13/24 11/13/24 11/14/24 14:59 22:59 06:59 Intake Total 500 ml 250 ml Balance 500 ml 250 ml medications Current Medications Medications Dose Ordered Sig/Tamia Route Start Time Stop Time Status Last Admin Dose Admin Acetaminophen 650 mg Q6HP PRN PO 11/10/24 16:45 Ondansetron HCl 4 mg Q4HP PRN IV 11/10/24 16:45 Nitroglycerin 0.4 mg Q5MINP PRN SL 11/10/24 16:45 Morphine Sulfate 2 mg Q30M PRN IV 11/10/24 16:45 Aspirin 81 mg DAILY PO 11/11/24 10:00 11/13/24 10:40 81 MG Clopidogrel Bisulfate 75 mg DAILY PO 11/11/24 10:00 11/13/24 10:41 75 MG Levothyroxine Sodium 100 mcg QAM PO 11/11/24 07:00 11/13/24 06:15 100 MCG Sacubitril/ Valsartan 1 tab BID PO 11/10/24 22:00 11/13/24 21:33 1 TAB Atorvastatin Calcium 40 mg DAILY PO 11/11/24 10:00 11/13/24 10:40 40 MG Pantoprazole Sodium 40 mg DAILY PO 11/11/24 10:00 11/13/24 10:40 40 MG laboratory and microbiology Laboratory Tests 11/11/24 05:06 Test 11/11/24 05:06 Range/Units Serum Glucose 105 74-106 mg/dL Problem List CHEST PAIN HX OF CAD S/P PTCA STENT X 5 HTN HYPERLIPIDEMIA TROPONIN NEGATIVE ECG NO ACUTE CHANGES ECHO LVH EF 50% NO CHANGES FROM PREVIOUS ECHO [facility] 05/04 * Left main without any flow restrictive lesion. * Left anterior descending artery, mild intimal irregularity without any flow restrictive lesion. * Circumflex, mild irregularity without any flow restrictive lesion. * Right coronary artery had mild intimal irregularity without any flow restrictive lesion. * Posterior lateral branch without any flow restrictive lesion. However, posterior descending artery had 80-90% narrowing with an FFR of 0.82. The patient underwent thrombectomy, shockwave treatment and stent placement with a 2.5 x 26 mm [place] stent with less than 10% residual stenosis. Left ventricular ejection fraction was around 50% with an LVEDP of 16 mmHg with no gradient across the aortic valve. Assessment/Plan CONSIDER CARDIOLITE STRESS IN AM NO FURTHER CHEST PAIN AMBULATING WITHOUT SX AWAITING STRESS CARDIOLITE Plan discussed with: Patient SHAR GARCÍA MD November 14, 2024 07:30
--- NOTE | 2024-11-14 07:30 | DVHPN2 ---
Progress Note - Dictate Date Seen: November 11, 2024 Medical Necessity Reason Pt with a Central, PICC or Fol: No Subjective PT WITH CHEST PAIN HX OF CAD S/P PTCA STENT X 5 HTN HYPERLIPIDEMIA TROPONIN NEGATIVE ECG NO ACUTE CHANGES ECHO LVH EF 50% NO CHANGES FROM PREVIOUS ECHO [facility] 05/04 * Left main without any flow restrictive lesion. * Left anterior descending artery, mild intimal irregularity without any flow restrictive lesion. * Circumflex, mild irregularity without any flow restrictive lesion. * Right coronary artery had mild intimal irregularity without any flow restrictive lesion. * Posterior lateral branch without any flow restrictive lesion. However, posterior descending artery had 80-90% narrowing with an FFR of 0.82. The patient underwent thrombectomy, shockwave treatment and stent placement with a 2.5 x 26 mm Damien [place] stent with less than 10% residual stenosis. Left ventricular ejection fraction was around 50% with an LVEDP of 16 mmHg with no gradient across the aortic valve. vital signs Vital Sign Date Time Temp Pulse Resp B/P (MAP) Pulse Ox O2 Delivery O2 Flow Rate FiO2 11/14/24 05:00 97.5 60 17 138/76 (96) 95 97.5 11/13/24 20:00 Room Air* 0 21 Total Intake and Output 11/13/24 11/13/24 11/14/24 14:59 22:59 06:59 Intake Total 500 ml 250 ml Balance 500 ml 250 ml medications Current Medications Medications Dose Ordered Sig/Tamia Route Start Time Stop Time Status Last Admin Dose Admin Acetaminophen 650 mg Q6HP PRN PO 11/10/24 16:45 Ondansetron HCl 4 mg Q4HP PRN IV 11/10/24 16:45 Nitroglycerin 0.4 mg Q5MINP PRN SL 11/10/24 16:45 Morphine Sulfate 2 mg Q30M PRN IV 11/10/24 16:45 Aspirin 81 mg DAILY PO 11/11/24 10:00 11/13/24 10:40 81 MG Clopidogrel Bisulfate 75 mg DAILY PO 11/11/24 10:00 11/13/24 10:41 75 MG Levothyroxine Sodium 100 mcg QAM PO 11/11/24 07:00 11/13/24 06:15 100 MCG Sacubitril/ Valsartan 1 tab BID PO 11/10/24 22:00 11/13/24 21:33 1 TAB Atorvastatin Calcium 40 mg DAILY PO 11/11/24 10:00 11/13/24 10:40 40 MG Pantoprazole Sodium 40 mg DAILY PO 11/11/24 10:00 11/13/24 10:40 40 MG laboratory and microbiology Laboratory Tests 11/11/24 05:06 Test 11/11/24 05:06 Range/Units Serum Glucose 105 74-106 mg/dL Problem List CHEST PAIN HX OF CAD S/P PTCA STENT X 5 HTN HYPERLIPIDEMIA TROPONIN NEGATIVE ECG NO ACUTE CHANGES ECHO LVH EF 50% NO CHANGES FROM PREVIOUS ECHO [facility] 05/04 * Left main without any flow restrictive lesion. * Left anterior descending artery, mild intimal irregularity without any flow restrictive lesion. * Circumflex, mild irregularity without any flow restrictive lesion. * Right coronary artery had mild intimal irregularity without any flow restrictive lesion. * Posterior lateral branch without any flow restrictive lesion. However, posterior descending artery had 80-90% narrowing with an FFR of 0.82. The patient underwent thrombectomy, shockwave treatment and stent placement with a 2.5 x 26 mm [place] stent with less than 10% residual stenosis. Left ventricular ejection fraction was around 50% with an LVEDP of 16 mmHg with no gradient across the aortic valve. Assessment/Plan CONSIDER CARDIOLITE STRESS IN AM NO FURTHER CHEST PAIN AMBULATING WITHOUT SX AWAITING STRESS CARDIOLITE Plan discussed with: Patient SHAR GARCÍA MD November 14, 2024 07:30
[2024-11-14 08:00] VITALS: PULSE 68; RESP 18; O2SAT 97
--- NOTE | 2024-11-14 08:44 | DVHPN2 ---
Subjective Patient was denies any symptoms at this time. Reviewed: Care Plan, H&P, Labs, Medications, Previous Orders Changes from previous H/P or p: No Changes General: Per HPI Cardiovascular: Chest Pain Musculoskeletal: arm pain Objective Vitals Vital Signs Date Time Temp Pulse Resp B/P (MAP) Pulse Ox O2 Delivery O2 Flow Rate FiO2 11/14/24 05:00 97.5 60 17 138/76 (96) 95 97.5 11/13/24 20:00 Room Air* 0 21 Intake/Output Intake and Output 11/14/24 07:00 Intake Total 750 ml Balance 750 ml Intake Oral 750 ml # Voids 4 # Bowel Movements 1 General Appearance: Alert, Oriented X3, Cooperative, No acute distress HEENT: Atraumatic, PERRLA Cardiovascular: Regular rate, Normal S1, Normal S2 Abdomen: Normal bowel sounds Musculoskeletal: Normal sensory function, Normal motor function Skin: Dry, Intact Psych/Mental Status: Mental status NL, Mood NL Medications Current Medications Medications Dose Ordered Sig/Tamia Route Start Time Stop Time Status Last Admin Dose Admin Acetaminophen 650 mg Q6HP PRN PO 11/10/24 16:45 Ondansetron HCl 4 mg Q4HP PRN IV 11/10/24 16:45 Nitroglycerin 0.4 mg Q5MINP PRN SL 11/10/24 16:45 Morphine Sulfate 2 mg Q30M PRN IV 11/10/24 16:45 Aspirin 81 mg DAILY PO 11/11/24 10:00 11/13/24 10:40 81 MG Clopidogrel Bisulfate 75 mg DAILY PO 11/11/24 10:00 11/13/24 10:41 75 MG Levothyroxine Sodium 100 mcg QAM PO 11/11/24 07:00 11/13/24 06:15 100 MCG Sacubitril/ Valsartan 1 tab BID PO 11/10/24 22:00 11/13/24 21:33 1 TAB Atorvastatin Calcium 40 mg DAILY PO 11/11/24 10:00 11/13/24 10:40 40 MG Pantoprazole Sodium 40 mg DAILY PO 11/11/24 10:00 11/13/24 10:40 40 MG Laboratory Results Laboratory Tests 11/11/24 05:06 Urinalysis Test 11/10/24 13:21 Urine Color Light-yellow (Yellow) Urine Clarity Clear (Clear) Urine pH 5.5 (5.0-9.0) Urine Specific [place] 1.017 (1.001-1.035) Urine Protein Negative (Negative) Urine Ketones Negative (Negative) Urine Blood Negative /uL (Negative) Urine Nitrite Negative (Negative) Urine Bilirubin Negative (Negative) Urine Urobilinogen Normal mg/dL (Negative) Urine Leukocyte Esterase Negative /uL (Negative) Urine RBC <1 /hpf (0 - 3) Urine Microscopic WBC 1 /HPF (0-3) Urine Squamous Epithelial Cells None seen /hpf (<5) Urine Bacteria None seen /hpf (None Seen) Urine Glucose Normal mg/dL (Normal) Labs and/or images reviewed: Labs reviewed by me, Image(s) reviewed by me Assessment/Plan Assessment/Plan Impression: -rule out ACS -history of CAD with stent placement x4 -dyslipidemia -primary hypertension -obesity Plan: Events: Patient to Cardiolite stress test today. -cardiology consultation: Recommendations reviewed -continue dual antiplatelet therapy -continue antihypertensives -echocardiogram: Pending -further course of care per certified pesticide applicator recommendations Total time spent with patient discussing and formulating plan of care: 35 minutes. This medical document was created using an electronic medical record system with [employer] dictation system. Although this document has been carefully reviewed, there may still be some phonetic and typographical errors. These areas are purely typographical due to imperfections of the software programs, and do not reflect any compromise in the patient's medical care. Plan discussed with: Patient, Other (RN) Date of Service: November 14, 2024 Billing Provider: GEORGINA DOMINGUEZ NP Common Visit Codes: [id number] INP/OBS CARE(HIGH) GEORGINA DOMINGUEZ NP November 14, 2024 08:44
[2024-11-14] MEDS: REGADENOSON 0.4 MG/5 ML SYRG IV ONE ×2 (09:39→09:46)
[2024-11-14 13:00] VITALS: BP 165/86; PULSE 69; RESP 22; TEMP 98; O2SAT 96
[2024-11-14 20:00] VITALS: PULSE 68; O2SAT 97
[2024-11-14 21:00] VITALS: BP 136/82; PULSE 60; RESP 18; TEMP 98.5; O2SAT 94
[2024-11-15 01:00] VITALS: BP 118/84; PULSE 60; RESP 18; TEMP 98.3; O2SAT 98
--- NOTE | 2024-11-15 07:55 | DVHSR ---
APPROVED REPORT Exam: Nuclear Stress Test Indication: Cardiomyopathy, Chest pain Stress Tech: Malissa Cabrera Ht: 5 ft 7 in Wt: 226 lbs BSA: 2.13 m2 BMI: 35.39 Medical History Medical History: HTN, Hyperlipidemia, PNA, PTCA X5 STENTS Allergies: No known drug allergies Stress Test Details Stress Test: Pharmacologic stress testing performed using 0.4 mg of regadenoson per 5 mL given IV ov er 10 seconds. Reason for pharmacologic stress test: CHEST PAIN. HR Resting HR: 64 bpmMax Heart Rate (APMHR): 156.748460 bpm Max HR Achieved: 90 bpmTarget HR (85% APMHR): 132.537527 bpm % of APMHR: 57.69 Recovery HR: 77 bpm BP Resting BP: 135/78 mmHg Recovery BP: 131/77 mmHg ECG Resting ECG: Sinus Rhythm Clinical Reason for Termination: Completed protocol Nurse Comments Received patient from Nuclear Medicine. Patient is A&O x4 and on RA. FOR VS please refer back to st ress test assessment documentation. Patient is connected to cardiac cath lab manager. See cardio-neuro proce dural notes for addtional details. PIV flushes well. Reviewed POC and patient verbalizes understand ing and consents to test. Lexiscan stress test performed per protocol. concrete engineering technician administered the Cardiolite. Pat ient tolerated well and vitals returned to baseline. Transferred to Nuclear Medicine via wheelchair with tech in stable condition. Stress ECG Conclusion lvef 45% mild LV dysfunction inferolateral wall infarct noted, fixed defect NM EXAM: Myocardial Perfusion REST/STRESS Imaging Protocol: Rest Tc-99m/Stress Tc-99m 1 day Resting Data Rest SPECT myocardial perfusion imaging was performed in supine position 60 minutes following the int ravenous injection of 11.0 mCi of Tc-99m Sestamibi. Time of rest injection: 07:40 Date: 11/14/2024 Time of rest imagin:40 Date: 11/14/2024 Administration Route: IV Administration Site: Right Arm Pharmacologic Stress Pharmacologic stress test was performed by injecting Regadenoson 0.4 mg IV push followed by the intra venous injection of 33.6 mCi of Tc-99m Sestamibi. Time of stress injection: 09:39 Date: 11/14/2024 Time of stress imagin:39 Date: 11/14/2024 Administration Route: IV Administration Site: Right Arm Gated Stress SPECT was performed 60 minutes after stress injection. The images were gated to evaluate regional wall motion and calculate left ventricular ejection fracti on. Stress only was performed in the Supine position. Nuclear Conclusion lvef 45% mild LV dysfunction inferolateral wall infarct noted, fixed defect
[2024-11-15 08:00] VITALS: PULSE 67; PULSE 74; RESP 18; O2SAT 96
[2024-11-15 08:53] VITALS: BP 132/82; PULSE 64; RESP 16; TEMP 98.2; O2SAT 98
--- NOTE | 2024-11-15 10:26 | DVHDS2 ---
Discharge Summary Date of Admission November 10, 2024 at 16:33 Date of Discharge: November 15, 2024 Admitting Diagnosis NSTEMI Labs/Diagnostic Data: Laboratory Results Test 11/11/24 05:06 11/10/24 17:08 11/10/24 13:21 11/10/24 11:50 White Blood Count 8.3 10^3/uL (4.4-10.8) Red Blood Count 5.58 10^6/uL (4.5-5.90) Hemoglobin 17.1 g/dL (13.5-17.5) Hematocrit 50.0 % (41.0-53.0) Mean Corpuscular Volume 89.6 fL (80.0-100.0) Mean Corpuscular Hemoglobin 30.7 pg (28.0-32.0) Mean Corpuscular Hemoglobin Concent 34.2 g/dL (32.0-36.0) Red Cell Distribution Width 13.5 % (11.8-14.3) Platelet Count 150 10^3/uL (140-450) Mean Platelet Volume 9.6 fL (6.9-10.8) Neutrophils (%) (Auto) 55.9 % (37.0-80.0) Lymphocytes (%) (Auto) 29.7 % (10.0-50.0) Monocytes (%) (Auto) 7.2 % (0.0-12.0) Eosinophils (%) (Auto) 6.6 % (0.0-7.0) Basophils (%) (Auto) 0.6 % (0.0-2.0) Neutrophils # (Auto) 4.7 10 ^3/uL (1.6-8.6) Lymphocytes # (Auto) 2.5 10 ^3/uL (0.4-5.4) Monocytes # (Auto) 0.6 10 ^3/uL (0-1.3) Eosinophils # (Auto) 0.5 10 ^3/uL (0-0.8) Basophils # (Auto) 0.1 10 ^3/uL (0-0.2) Nucleated Red Blood Cells 0.1 % Sodium Level 139 mmol/L (136-145) Potassium Level 4.2 mmol/L (3.5-5.1) Chloride Level 107 mmol/L (98-107) Carbon Dioxide Level 22 mmol/L (20-31) Anion Gap 10 (5-15) Blood Urea Nitrogen 14 mg/dL (9-23) Creatinine 0.89 mg/dL (0.700-1.30) Glomerular Filtration Rate Calc 96 mL/min (>90) BUN/Creatinine Ratio 15.7 (10.0-20.0) Serum Glucose 105 mg/dL (74-106) Calcium Level 9.9 mg/dL (8.7-10.4) Magnesium Level 2.1 mg/dL (1.6-2.6) Troponin I High Sensitivity 80 ng/L (</=54) Urine Color Light-yellow (Yellow) Urine Clarity Clear (Clear) Urine pH 5.5 (5.0-9.0) Urine Specific [place] 1.017 (1.001-1.035) Urine Protein Negative (Negative) Urine Ketones Negative (Negative) Urine Blood Negative /uL (Negative) Urine Nitrite Negative (Negative) Urine Bilirubin Negative (Negative) Urine Urobilinogen Normal mg/dL (Negative) Urine Leukocyte Esterase Negative /uL (Negative) Urine RBC <1 /hpf (0 - 3) Urine Microscopic WBC 1 /HPF (0-3) Urine Squamous Epithelial Cells None seen /hpf (<5) Urine Bacteria None seen /hpf (None Seen) Urine Glucose Normal mg/dL (Normal) Thyroid Stimulating Hormone (TSH) 1.85 uIU/mL (0.55-4.78) Test 11/10/24 10:01 Triglycerides Level 137 mg/dL (< 150) Cholesterol Level 126 mg/dL (< 200) LDL Cholesterol 72 mg/dL (< 100) HDL Cholesterol 33 mg/dL (40-59) Other Laboratory Tests 11/11/24 05:06 Brief Hx & Hospital Course: History of Present Illness Vic Desir is a 64-year-old male with past medical history of hypertension, hyperlipidemia, hypothyroidism, pneumonia, and PTCA x5 most recent one with Dr. Tavarez less than 4 months ago who presents to the ED with chest pain x2 days radiating to the left arm and face. Patient reports that he has tingling around his face on the left side, describes the chest pain 6/10 sharp and intermittent in nature. 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 Patient states that there are no triggering or alleviating factors. Patient states that he goes to [place] and back for work. Patient denies any recent trauma or injury, recent sick contacts, recent ingestion of spoiled food, shortness of breath, abdominal pain, nausea, vomiting, diarrhea, wheezing, fever, chills, lightheadedness, weakness, or dizziness. Course hospitalization: Cardiology consultations obtained. Patient had echocardiogram. Patient also underwent Cardiolite stress test yesterday without any noted reversible ischaemia. Discussion was made with Dr. Tavarez who has cleared the patient for being discharged home today and follow up with the clinic in one week. Patient will be discharged home and continue all previous home medications. All questions answered. Physical examination General: Alert and Oriented x3. No acute distress. Well-nourished. Eyes: EOMI. Anicteric. HENT: Moist mucous membranes. Lungs: Clear to auscultation bilaterally. No accessory muscle use. Cardiovascular: Regular rate and rhythm. No murmur. No JVD. Abdomen: Soft, non-tender and non-distended. No palpable masses. Extremities: No edema. Non-tender. Skin: No rashes or lesions. Warm. Neurologic: No focal neurological deficits. CN II-XII grossly intact, but not individually tested. Psychiatric: Cooperative. Appropriate mood and affect. Total time spent with patient discussing and formulating plan of care: 35 minutes. This medical document was created using an electronic medical record system with [employer] dictation system. Although this document has been carefully reviewed, there may still be some phonetic and typographical errors. These areas are purely typographical due to imperfections of the software programs, and do not reflect any compromise in the patient's medical care. Condition at Discharge: Fair Final Diagnosis/Problems List CHEST PAIN WITH CORONARY ARTERY DISEASE Secondary diagnosis: -ACS -history of CAD with stent placement x5 -dyslipidemia -primary hypertension -obesity Discharge Disposition: Home Discharge Instruct/Medications Diet: Cardiac 2g Na,low cholest Activity: No Restrictions, As Tolerated Follow Up/Referral: FOLLOW UP WITH DR. Tavarez IN ONE WEEK Medications: Continue all previous home medications 36 Discharge Statement: "Patient was advised to return to the ER or call 911 if any headaches, dizziness, shortness of breath, chest pain, abdominal pain, bleeding, fevers, or worsening of medical condition. Patient was counseled about treatment plan, medications, possible side effects, patientverbalized understanding. All questions were answered to the best of my ability. This discharge took greater then 30 minutes in planning, reviewing documentation, counseling the patient, and discussing with other team members." ASSESSMENT ASSESSMENT Assessment CHEST PAIN WITH CORONARY ARTERY DISEASE Date of Service: November 15, 2024 Billing Provider: GEORGINA DOMINGUEZ NP Common Visit Codes: 58235-GYR/OBS DISCH DAY >30min GEORGINA DOMINGUEZ NP November 15, 2024 10:26
[2024-11-15 10:50] VITALS: TEMP 36.8
--- NOTE | 2024-11-15 13:45 | DVHPN2 ---
Progress Note - Dictate Date Seen: November 15, 2024 Medical Necessity Reason Pt with a Central, PICC or Fol: No Subjective PT WITH CHEST PAIN HX OF CAD S/P PTCA STENT X 5 HTN HYPERLIPIDEMIA TROPONIN NEGATIVE ECG NO ACUTE CHANGES ECHO LVH EF 50% NO CHANGES FROM PREVIOUS ECHO [facility] 05/04 * Left main without any flow restrictive lesion. * Left anterior descending artery, mild intimal irregularity without any flow restrictive lesion. * Circumflex, mild irregularity without any flow restrictive lesion. * Right coronary artery had mild intimal irregularity without any flow restrictive lesion. * Posterior lateral branch without any flow restrictive lesion. However, posterior descending artery had 80-90% narrowing with an FFR of 0.82. The patient underwent thrombectomy, shockwave treatment and stent placement with a 2.5 x 26 mm [place] stent with less than 10% residual stenosis. Left ventricular ejection fraction was around 50% with an LVEDP of 16 mmHg with no gradient across the aortic valve. vital signs Vital Sign Date Time Temp Pulse Resp B/P (MAP) Pulse Ox O2 Delivery O2 Flow Rate FiO2 11/15/24 10:50 36.8 11/15/24 08:53 64 16 132/82 (99) 98 11/15/24 08:00 Room Air* 0 21 Total Intake and Output 11/14/24 11/14/24 11/15/24 15:00 23:00 07:00 Intake Total 870 ml 900 ml Output Total 2 ml Balance 868 ml 900 ml laboratory and microbiology Laboratory Tests 11/11/24 05:06 Test 11/11/24 05:06 Range/Units Serum Glucose 105 74-106 mg/dL Problem List CHEST PAIN HX OF CAD S/P PTCA STENT X 5 HTN HYPERLIPIDEMIA TROPONIN NEGATIVE ECG NO ACUTE CHANGES ECHO LVH EF 50% NO CHANGES FROM PREVIOUS ECHO [facility] 05/04 * Left main without any flow restrictive lesion. * Left anterior descending artery, mild intimal irregularity without any flow restrictive lesion. * Circumflex, mild irregularity without any flow restrictive lesion. * Right coronary artery had mild intimal irregularity without any flow restrictive lesion. * Posterior lateral branch without any flow restrictive lesion. However, posterior descending artery had 80-90% narrowing with an FFR of 0.82. The patient underwent thrombectomy, shockwave treatment and stent placement with a 2.5 x 26 mm [place] stent with less than 10% residual stenosis. Left ventricular ejection fraction was around 50% with an LVEDP of 16 mmHg with no gradient across the aortic valve. Assessment/Plan CONSIDER CARDIOLITE STRESS IN AM NO FURTHER CHEST PAIN AMBULATING WITHOUT SX AWAITING STRESS CARDIOLITE NEGATIVE FOR ISCHEMIA DC HOME Dietary Evaluation Review Comments: cardiac diet, wt management Expected Outcomes/Goals: Gradual Wt loss. Plan discussed with: Patient SHAR GARCÍA MD November 15, 2024 13:45
== END 2024-11-15 12:00 | disposition home or self-care (01) | DRG 198 ==
LOC: ER 08:59 → OVERFLOW 16:33 → TELE-CENTR 20:59
PROVIDERS: ADMIT Nurse Practitioner Acute Care; ATTEND Nurse Practitioner Acute Care
DX: I25.10 Atherosclerotic heart disease of native coronary artery without angina pectoris (principal); I24.9 Acute ischemic heart disease, unspecified; E03.9 Hypothyroidism, unspecified; E66.9 Obesity, unspecified; E78.5 Hyperlipidemia, unspecified; I10 Essential (primary) hypertension; Z87.891 Personal history of nicotine dependence; Z68.35 Body mass index [BMI] 35.0-35.9, adult; Z87.01 Personal history of pneumonia (recurrent); Z95.5 Presence of coronary angioplasty implant and graft; Z79.82 Long term (current) use of aspirin
CPT/HCPCS: 36415; 71046; 78452; 80048; 80061; 81001; 83735; 84443; 84484; 85025; 93005; 93017; 93306; 99291; G0378

== ENCOUNTER 2025-04-03 15:34 | Outpatient (CLI) | payer MEDICARE, MEDICAID | END 2025-04-03 17:00 | disposition home or self-care (01) | LOC: Rad HDHVI 15:34 | PROVIDERS: ATTEND Internal Medicine Cardiovascular Disease | DX: I08.1 Rheumatic disorders of both mitral and tricuspid valves (principal); I11.9 Hypertensive heart disease without heart failure | CPT/HCPCS: 93306 ==

== ENCOUNTER 2025-04-09 07:58 | Outpatient (CLI) | payer MEDICARE, MEDICAID ==
[~2025-04-09] VITALS: Ht 170.2 cm; Wt 99.8 kg
[2025-04-09] MEDS ORDERED: ADENOSINE 84 MG in GIVE UN-DILUTED 0 ML IV ONE (08:30)
[2025-04-09] MEDS ORDERED: ADENOSINE 90 MG/30 ML INJ IV ONE (08:34)
== END 2025-04-09 17:00 | disposition home or self-care (01) ==
LOC: Rad HDHVI 07:58
PROVIDERS: ATTEND Internal Medicine Cardiovascular Disease
DX: I49.1 Atrial premature depolarization (principal); I11.0 Hypertensive heart disease with heart failure; I50.23 Acute on chronic systolic (congestive) heart failure; I25.10 Atherosclerotic heart disease of native coronary artery without angina pectoris; I25.5 Ischemic cardiomyopathy; R00.1 Bradycardia, unspecified; R06.02 Shortness of breath; E78.00 Pure hypercholesterolemia, unspecified; Z95.5 Presence of coronary angioplasty implant and graft; Z82.49 Family history of ischemic heart disease and other diseases of the circulatory system
CPT/HCPCS: 78452; 93017; A9500; J0153

== ENCOUNTER 2025-05-02 08:37 | Outpatient (CLI) | payer MEDICARE, MEDICAID ==
[2025-05-02 08:40] VITALS: BP 144/74; PULSE 63; RESP 16; O2SAT 90
[2025-05-02 09:03] VITALS: BP 145/75; PULSE 61; RESP 16; O2SAT 90
[2025-05-02] MEDS ORDERED: VERI5TAB PO (10:08)
== END 2025-05-02 17:00 | disposition home or self-care (01) ==
LOC: CHF HDHVI 08:37
PROVIDERS: ATTEND Internal Medicine Cardiovascular Disease
DX: Z01.810 Encounter for preprocedural cardiovascular examination (principal); I20.9 Angina pectoris, unspecified; R07.9 Chest pain, unspecified; I25.2 Old myocardial infarction
CPT/HCPCS: 93005; G0463

== ENCOUNTER 2025-05-03 06:38 | Day surgery (SDC) | payer MEDICARE, MEDICAID ==
[2025-05-02 11:29] LABS: Hematocrit 48.6 % (41.0-53.0); Hemoglobin 16.8 g/dL (13.5-17.5); Mean Corpuscular Hemoglobin 30.7 pg (28.0-32.0); Mean Corpuscular Volume 88.7 fL (80.0-100.0); Nucleated Red Blood Cells % 0.2 %
[2025-05-02 11:47] LABS: INR 1.0 (0.9-1.15); Partial Thromboplastin Time 26.2 SEC (24.5-34.5); Prothrombin Time 10.6 sec (9.3-11.8)
[2025-05-02 12:21] LABS: Anion Gap 12 (5-15); Carbon Dioxide 21 mmol/L (20-31); Chloride 106 mmol/L (98-107); Potassium 3.9 mmol/L (3.5-5.1); Sodium 139 mmol/L (136-145)
[2025-05-02 12:22] LABS: Calcium 9.4 mg/dL (8.7-10.4)
[2025-05-02 12:27] LABS: BUN/Creatinine Ratio 13.5 (10.0-20.0); Blood Urea Nitrogen 13 mg/dL (9-23); Glucose 98 mg/dL (74-106)
[~2025-05-03] VITALS: Ht 170.2 cm; Wt 104.8 kg
[~2025-05-03 06:38] MED LIST changes: -ESOM40CA39 PO; +VERI5TAB PO
[2025-05-03] MEDS ORDERED: IOHEXOL 350 MG/ML 100ML IJ ONE (08:03)
[2025-05-03] MEDS ORDERED: ANGIOMAX 250 MG VIAL IV ONE (08:32)
[2025-05-03] MEDS ORDERED: MIDAZOLAM HCL 2MG/2ML 2ml VIAL (1mg/ml) ONE (08:33)
[2025-05-03] MEDS ORDERED: SODIUM CHL 0.9% 50 ML ONE (08:33)
[2025-05-03] MEDS ORDERED: fentaNYL CITRATE 100 MCG/2 ML VL ONE (08:33)
[2025-05-03] MEDS ORDERED: LIDOCAINE 2%HCL (LOCAL ANESTH.) INJ 20ML MDV ONE (08:33)
[2025-05-03] MEDS ORDERED: CLOPIDOGREL BISULFATE 75 MG TAB ONE (08:57)
--- NOTE | 2025-05-03 09:20 | DVHOP ---
DATE OF SURGERY: 05/03/2025 PROCEDURES PERFORMED: * Selective left and right coronary angiography. * Ventriculogram. * Right iliac angiography. * Angioplasty with stent placement of the proximal RCA with a 4.0 x 15 mm [place] stent. * FFR of LAD, which was 0.94, FFR of RCA 0.78, thrombectomy of the right coronary artery with a 3.5 mm thrombectomy Shockwave catheter. Conscious sedation was also given. DESCRIPTION OF PROCEDURE: The patient was prepped and draped in sterile condition. Then, 1% Xylocaine was used to anesthetize the right groin. The right femoral artery was engaged. Using the Seldinger technique, a 6-[place] sheath in the right femoral artery. Using a 6-[place] JL4 catheter and a 6-[place] JR4 catheter, selective left and right coronary angiography was performed. Using a 6-[place] pigtail catheter ventriculogram was done. Then, the 6-[place] diagnostic system was exchanged for a 6-[place] interventional system. Using a 6-[place] JR4 guide catheter, RCA was cannulated. Using a ChoicePT extra support wire, the RCA lesion was then crossed. It was then thrombectomized using a 3.5 x 12 mm Shockwave thrombectomy catheter. Following the treatment, a 4.0 x 15 mm [place] stent was deployed across the lesion at 16 atmospheres. There were no complications. The patient tolerated the procedure well. RESULTS: Left main without any flow restrictive lesion, mildly calcified. Left anterior descending artery has mild intimal irregularity; however, in the proximal segment there was stenosis, but it was less than 20%. Underwent FFR of the LAD. It was 0.94. Therefore, it is not significant. Rapid tapering of the LAD, otherwise, unremarkable. Circumflex lesion, small caliber vessel, rapid tapering, without any flow restrictive lesion. Right coronary artery, large dominant vessel has approximately 70% narrowing status post thrombectomy, angioplasty with stent placement with a 4.0 x 15 mm Damien [place] stent with less than 10% residual stenosis. Left ventricular ejection fraction was mild global hypokinesis with an estimated EF of 40%-45%. However, left ventricular end diastolic pressure was significantly elevated over 35 mm Hg, with left ventricular systolic pressure of 150, with no gradient across the aortic valve. At this time, the patient has complete revascularization, especially of the RCA, but more importantly, the patient's EF is diminished. The patient has marked elevation in LVEDP of greater than 35 mmHg. Aggressive antihypertensive therapy and risk factor modifications such as weight loss, salt intake needs to be implemented aggressively. Corby Owens MD SA/[facility] TID: [id number] RECEIPT: [id number]
--- NOTE | 2025-05-03 09:28 | DVHHP ---
ADMIT DATE: 05/03/2025 HISTORY OF PRESENT ILLNESS: The patient, who is 65 years old, with history of a hypertension, hyperlipidemia, history of angioplasty with stent placement, total of 5 cardiac stents were placed at an outside facility in 2023. The patient with both parents with coronary artery disease with ischemic cardiomyopathy as well with congestive heart failure symptoms. The patient has not had any GA, but he has had ongoing chest pain. Last echocardiogram showed mild decrease in left ventricular ejection fraction, remote history of tobacco, discontinued smoking some 25 years ago. No history of diabetes. No history of renal insufficiency. No current history of overt heart failure, even though he has systolic dysfunction, EF around 40-45%. REVIEW OF SYSTEMS: Denies any fever, chills. No melena, hematochezia, hematemesis, hemoptysis. Denies any history of recent travel. No fever. No chills. No history of endocarditis. No history of mixed connective tissue disease. Positive for osteoarthritis, morbid obesity with metabolic syndrome. Denies any history of any lung disease such as COPD or asthma. Denies any history of seizure disorder, movement disorder, or CVA. PHYSICAL EXAMINATION: VITAL SIGNS: Blood pressure is 148/72, pulse of 68, O2 saturation 94% on room air. HEENT: Pupils are reactive. Funduscopic exam shows no AV nicking, no exudates, no papilledema. Sclerae anicteric. Extraocular muscles are intact. Tympanic membranes are negative. Oral mucosa moist. Posterior pharynx without any exudate. NECK: No JVD appreciated. Carotid pulses are 2+ symmetrical. Normal upstroke and contour. No cervical adenopathy. No supraclavicular adenopathy. Thyroid is within normal limits. PULMONARY: Clear to auscultation. Tympanic to percussion in all quadrants. CARDIOVASCULAR: Regular rate without S3, without S4. PMI is not displaced. ABDOMEN: Obese, unable to appreciate organomegaly. Liver approximately 5 cm by percussion. Spleen tip nonpalpable. No epigastric tenderness. No suprapubic tenderness. No CVA tenderness. Stool guaiac is negative. NEUROLOGIC: The patient is intact. EXTREMITIES: 1+ pulses bilaterally. ASSESSMENT AND PLAN: Thus, the patient has ongoing chest pain, shortness of breath, dyspnea on exertion. Because of the patient's classic presentation for angina, we decided to proceed with angiogram rather than do another stress Cardiolite. Echocardiogram shows an ejection fraction around 40-45%. Further recommendations after the angiography. Corby Owens MD SA/[facility] TID: [id number] RECEIPT: [id number]
--- NOTE | 2025-05-03 09:39 | DVHDS ---
DATE OF DISCHARGE: 05/03/2025 The patient underwent successful revascularization of the RCA. More importantly, the patient's LVEDP is markedly elevated greater than 35 mmHg with left ventricular systolic pressure 150. Aggressive afterload and preload reduction should be initiated. The patient is all the hallmark of both systolic and diastolic heart failure. We will continue to follow the patient. Stable at the time of discharge. DISPOSITION: Home. ACTIVITY: As instructed. DIET: A 2 g sodium diet. The patient will be maintained on dual antiplatelet therapy. More importantly, he needs to have aggressive antihypertensive therapy to reduce afterload and preload. I will make further recommendations when I see him in 1 week. Corby Owens MD SA/AMIE TID: [id number] RECEIPT: [id number]
== END 2025-05-03 11:15 | disposition home or self-care (01) ==
LOC: CATH 06:38
PROVIDERS: ATTEND Internal Medicine Cardiovascular Disease
DX: R07.9 Chest pain, unspecified (principal); I25.10 Atherosclerotic heart disease of native coronary artery without angina pectoris; R06.09 Other forms of dyspnea; R06.02 Shortness of breath; I10 Essential (primary) hypertension; E78.5 Hyperlipidemia, unspecified; Z79.82 Long term (current) use of aspirin; Z79.890 Hormone replacement therapy; Z79.899 Other long term (current) drug therapy; Z95.5 Presence of coronary angioplasty implant and graft; Z87.891 Personal history of nicotine dependence; Z82.49 Family history of ischemic heart disease and other diseases of the circulatory system
CPT/HCPCS: 0523T; 36415; 80048; 85025; 85610; 85730; 92972; 92973; 93458; C1760; C1761; C1769; C1874; C1887; C1894; C9600; J0583; J1644; J2250; J3010; Q9967; 99152